=== PATIENT | male | born 1975 | race Caucasian/White ===

== ENCOUNTER 2020-05-01 02:51 | Emergency (ER) | payer SELFPAY ==
[~2020-05-01] VITALS: Ht 157.4 cm; Wt 59.0 kg
[~2020-05-01 02:51] MED LIST: AMOXICILLIN500 MG PO; ANAPROX DS550 MG PO; CLEOCIN HCL150 MG PO; CLEOCIN150 MG PO; TRAMADOL HCL50 MG PO; VICODIN ES 7501 TAB PO
[2020-05-01] MEDS ORDERED: TOBRADEX 0.3-0.15 ML OPH (03:36)
== END 2020-05-01 04:00 | disposition home or self-care (01) ==
LOC: ED 02:51
DX: S05.01XA Injury of conjunctiva and corneal abrasion without foreign body, right eye, initial encounter (principal); J45.909 Unspecified asthma, uncomplicated; F17.200 Nicotine dependence, unspecified, uncomplicated; Z88.5 Allergy status to narcotic agent; X58.XXXA Exposure to other specified factors, initial encounter; Y93.89 Activity, other specified; Y92.89 Other specified places as the place of occurrence of the external cause; Y99.8 Other external cause status

== ENCOUNTER 2023-04-09 12:51 | Emergency (ER) | payer BC ==
[~2023-04-09] VITALS: Ht 157.4 cm; Wt 59.0 kg
[~2023-04-09 12:51] MED LIST changes: +TOBRADEX 0.3-0.15 ML OPH
== END 2023-04-09 15:10 | disposition home or self-care (01) ==
LOC: ED 12:51
DX: M94.0 Chondrocostal junction syndrome [Tietze] (principal); R07.81 Pleurodynia; J45.909 Unspecified asthma, uncomplicated; Z88.5 Allergy status to narcotic agent; Z87.891 Personal history of nicotine dependence